=== PATIENT | male | born 1990 | race Caucasian/White ===

== ENCOUNTER 2023-02-06 06:37 | Emergency (ER) | payer SELFPAY ==
--- NOTE | ~2023-02-06 | XR_ITS ---
EXAMINATION: XR chest 2V DATE: 02/06/2023 07:37 INDICATION: Shortness of breath TECHNIQUE: PA and lateral views of the chest are obtained. COMPARISON: None available FINDINGS: The lungs are free of acute opacities. No pleural effusion or pneumothorax. The cardiomedia stinal silhouette is normal. The visualized bones and soft tissues are unremarkable. IMPRESSION: 1. No acute cardiopulmonary abnormality. Reviewed, dictated and finalized at location [facility]
[2023-02-06 06:46] VITALS: BP 118/88; PULSE 65; RESP 15; TEMP 36.6; O2SAT 100
[2023-02-06 06:54] VITALS: PULSE 68
--- NOTE | 2023-02-06 06:55 | ED.GENADULT ---
HPI - General Adult General Chief complaint: Unspecified Stated complaint: Multiple complaints Time Seen by Provider: 02/06/23 06:53 Source: patient Mode of arrival: ambulatory Limitations: no limitations History of Present Illness HPI narrative: Is a 32-year-old male with no past medical history or PSH who presents with complaint of right-sided tightness in his chest that he has been experiencing for the past 6 months nearly constantly. He denies any mehul chest pain but states that at baseline the pain in his thorax feels like a 2 out of 10 in severity. He occasionally experiences difficulty breathing. It awakens him from sleep and this occurred today which prompted him to come to the emergency department. He denies any pleuritic nature to his pain. No orthopnea or. Described lower extremity edema. He states he occasionally has a cough productive of white phlegm. He smokes approximately 1 pack/day and he did quit for 2 months after having an episode of scant hemoptysis but he recently resumed smoking 2 days ago and does appreciate that his symptoms are worse when he smokes. He denies any recurrence of hemoptysis. No recent travel. He denies any fevers, chills, rhinorrhea, weight loss, or weight gain. He has been having a sore throat which he points to the right side of his neck. No sick contacts Related Data Allergies Allergy/AdvReac Type Severity Reaction Status Date / Time ibuprofen AdvReac Unknown Swelling Verified 02/06/23 06:57 of the Eye Review of Systems Review of Systems: All systems reviewed & are unremarkable except as noted in HPI and below (HPI) [facility] Family History Family History Other Diabetes mellitus Social History Social History (Updated 02/06/23 @ 07:20 by Deidra Gordon MD) Smoking packs per day: 1 Smoking cigarettes per day: 20.0 Alcohol intake: never Substance use: never Current Housing: I Have Housing Living arrangements: alone Exam Const: General: cooperative, healthy appearing, comfortable, no acute distress and well developed; No in distress, anxious, combative or confusion Nutritional Appearance: average body habitus, well nourished, not cachectic and not malnourished Orientation/consciousness: patient oriented x3 and No confusion Limitations: no limitations HENMT: Head: normal to inspection Ears: hearing grossly normal bilaterally Face/Nose/Sinus: Normal external nose present Face and sinus: normal facial exam Mouth: Yes Normal oral and palatal mucosa present Throat: uvula midline Other: Mallampati Class III Eyes: General: appearance normal, both eyes and all related structures Neck: Neck: normal visual inspection Thyroid: asymmetrical (mild (R >L)) Lymphatic: no lymphadenopathy noted Chest: Chest palpation & inspection: normal inspection of the chest, normal palpation of entire chest wall (on the right), no crepitus, no localized rib tenderness and no tenderness Resp: Effort & Inspection: normal respiratory effort, able to speak in complete sentences, normal respiratory pattern, no audible wheezes, no cough, no grunting, not labored, no pursed lip breathing, no respiratory distress, no retractions, no segmental paradox chest wall movement, no stridor, not tachypneic, no tripod positioning, no use of accessory muscles and symmetric chest movement Auscultation: clear to auscultation bilaterally, no crackles, no rales, no rhonchi, no wheezes and lung sounds not diminished Cardio: Rate: regular rate Rhythm: regular rhythm Heart sounds: S1 normal heart sound present and S2 normal heart sound present GI: Inspection: normal to inspection Skin: General skin exam: normal color, no rashes or lesions noted (particularly upon inspection of right chest), no ecchymosis, no purpura, No abrasion and No laceration Neuro: General: patient oriented x3 Cognition (Neuro): normal cognition Speech: normal spee
--- NOTE | 2023-02-06 07:04 | ECG_ITS ---
Measurements Intervals [place] Rate: 52 P: 38 MN: 153 QRS: 33 QRSD: 87 T: 17 QT: 394 QTc: 369 Interpretive Statements SINUS BRADYCARDIA BORDERLINE ECG NO PREVIOUS ECG AVAILABLE FOR COMPARISON Electronically Signed On 02-06-2023 8:03:00 PHYSICAL INTEGRATION PRACTITIONER by Uriel Carrillo D.O.
[2023-02-06 07:10] VITALS: BP 137/76; PULSE 73; RESP 18; O2SAT 100
[2023-02-06] MEDS: ACETAMINOPHEN 325 MG TABLET 650 MG PO (07:14)
[2023-02-06 07:42] VITALS: O2SAT 100
[2023-02-06 08:08] LABS: SARS-CoV-2 RNA PCR Negative (Negative)
[2023-02-06 08:22] VITALS: BP 119/66; PULSE 77; RESP 20; O2SAT 100
== END 2023-02-06 08:23 | disposition home or self-care (01) ==
PROVIDERS: Emergency Provider Student in an Organized Health Care Education/Training Program
DX: R09.1 Pleurisy (principal); F17.210 Nicotine dependence, cigarettes, uncomplicated; Z20.822 Contact with and (suspected) exposure to COVID-19
CPT/HCPCS: 36415; 71046; 87635; 93005; 99284; A9270